=== PATIENT | female | born 1970 | race Asian ===

== ENCOUNTER → 2017-07-12 | Outpatient (REF) | payer BC ==
[2017-07-12 19:57] LABS: BACTERIA, URINE LARGE AMOUNT; MICROSCOPIC EXAM PERFORMED; SQUAMOUS EPITHELIAL CELL URINE SMALL AMOUNT /hpf (SMALL AMT)
[2017-07-12 21:47] LABS: HYALINE CAST, URINE NONE SEEN /lpf (0-1)
== END ==
LOC: M LAB REF 16:36
DX: R35.0 Frequency of micturition (principal)
CPT/HCPCS: 81015

== ENCOUNTER → 2018-03-02 | Outpatient (CLI) | payer BC | LOC: M WUC 12:12 | DX: M54.32 Sciatica, left side (principal); M51.36 Other intervertebral disc degeneration, lumbar region | CPT/HCPCS: 72110 ==

== ENCOUNTER → 2018-12-11 | Outpatient (REF) | payer BC ==
[2018-12-11 17:59] LABS: C REACTIVE PROTEIN QUANTITATIV 0.49 MG/DL (0.00-0.30); RHEUMATOID FACTOR QUANT 49.5 IU/ML (<15.0)
[2018-12-11 18:11] LABS: AMORPHOUS SEDIMENT MODERATE (NEGATIVE); APPEARANCE, URINE CLOUDY (CLEAR); BACTERIA, URINE AUTO 2+ (NEGATIVE); BILIRUBIN, URINE AUTO NEGATIVE (NEGATIVE); BLOOD, URINE BLOOD NEGATIVE (NEGATIVE); COLOR, URINE YELLOW (YELLOW); GLUCOSE, URINE (UA) AUTO NEGATIVE (NEGATIVE); KETONE, URINE AUTO NEGATIVE (NEGATIVE); LEUKOCYTE ESTERASE, URINE AUTO NEGATIVE (NEGATIVE); NITRITE, URINE AUTO POSITIVE (NEGATIVE); PROTEIN, URINE AUTO NEGATIVE (NEGATIVE); RBC, URINE AUTO 6 /HPF (0-3); SPECIFIC GRAVITY URINE AUTO 1.016 (1.002-1.035); SQUAMOUS EPITHELIAL CELL UR AU 1 /HPF (0-6); WBC, URINE AUTO 2 /HPF (0-3)
[2018-12-14 14:08] LABS: ANTI DOUBLE STRAND-DNA AB 1 IU/mL (0-9); ANTINUCLEAR ANTIBODIES DIRECT Positive (Negative); Lyme Disease IgG Ab 18 kDa Ban Present (.); Lyme Disease IgG Ab 23 kDa Ban Absent (.); Lyme Disease IgG Ab 28 kDa Ban Absent (.); Lyme Disease IgG Ab 30 kDa Ban Absent (.); Lyme Disease IgG Ab 39 kDa Ban Absent (.); Lyme Disease IgG Ab 41 kDa Ban Absent (.); Lyme Disease IgG Ab 45 kDa Ban Absent (.); Lyme Disease IgG Ab 58 kDa Ban Absent (.); Lyme Disease IgG Ab 66 kDa Ban Absent (.); Lyme Disease IgG Ab 93 kDa Ban Absent (.); Lyme Disease IgG West Blot Int Negative (.); Lyme Disease IgG/IgM Antibodie <0.91 ISR (0.00-0.90); Lyme Disease IgM Ab 23 kDa Ban Absent (.); Lyme Disease IgM Ab 39 kDa Ban Absent (.); Lyme Disease IgM Ab 41 kDa Ban Absent (.); Lyme Disease IgM Ab Quantitati 0.87 index (0.00-0.79); Lyme Disease IgM West Blot Int Negative (.); RNP ANTIBODIES <0.2 AI (0.0-0.9); SJOGREN'S ANTI SS-A >8.0 AI (0.0-0.9); SJOGREN'S ANTI SS-B 1.9 AI (0.0-0.9); SMITH ANTIBODIES <0.2 AI (0.0-0.9)
== END ==
LOC: M LAB REF 16:56
PROVIDERS: ATTEND Nurse Practitioner Family
DX: M25.50 Pain in unspecified joint (principal); R31.9 Hematuria, unspecified

== ENCOUNTER → 2018-12-14 | Outpatient (CLI) | payer BC ==
--- NOTE | 2018-12-14 20:53 | REP ---
Clinical: Leiomyoma . Technique: Transabdominal pelvic ultrasound followed by transvaginal examination for better evaluation of the endometrium and adnexa with color Doppler evaluation of the ovaries. Findings: Bladder is unremarkable and measures 7.6 x 9.3 x 10.0 cm . Heterogeneous retroverted uterus measures 8.2 x 4.8 x 5.0 cm . The endometrial complex measures 2.9 mm thickness. Two small intramural fibroids are suspected measuring 9 mm and 5 mm maximal diameter. Right ovary is not visualized. Left ovary appears normal and measures 2.2 x 1.5 x 1.2 cm. No ascites. Impression: 1. Heterogeneous retroverted uterus with two small subcentimeter intramural fibroids up to 9 mm. 2. Right ovary not visualized. Normal left ovary identified. Electronically Signed by Matt Wilder MD 12/14/2018 08:44 P
== END ==
LOC: M RAD 17:27
PROVIDERS: ATTEND Obstetrics & Gynecology
DX: D25.1 Intramural leiomyoma of uterus (principal)

== ENCOUNTER → 2020-08-01 | Outpatient (CLI) | payer BC ==
[2020-08-01 17:28] LABS: FREE T3 2.6 PG/ML (2.2-4.0); NT-PRO BNP 20 PG/ML (<125); TOTAL 25(OH) VITAMIN D 17.4 NG/ML (30.0-100.0); TROPONIN I < 0.02 NG/ML (< 0.10)
== END ==
LOC: M WUC 13:58
PROVIDERS: ATTEND Registered Nurse
DX: Z13.21 Encounter for screening for nutritional disorder (principal); Z13.29 Encounter for screening for other suspected endocrine disorder; R07.9 Chest pain, unspecified

== ENCOUNTER → 2020-12-26 | Outpatient (CLI) | payer BC ==
[2020-12-26 15:12] LABS: MEAN CORPUSCULAR HEMOGLOBIN 31.5 pg (27.0-33.0); MEAN CORPUSCULAR HGB CONC 34.3 g/dl (32.0-36.5); MEAN CORPUSCULAR VOLUME 91.9 fl (80.0-96.0); PLATELET COUNT, AUTOMATED 288 10^3/uL (150-450); RED BLOOD COUNT 3.81 10^6/uL (4.00-5.40); WHITE BLOOD COUNT 7.8 10^3/uL (4.0-10.0)
--- NOTE | 2020-12-26 15:23 | REP ---
INDICATION: PAIN IN THORACIC SPINE/ LABS 1ST, XRAY 2ND. COMPARISON: None. TECHNIQUE: Three views FINDINGS: 27 degree scoliosis lower thoracic spine convexity to the right. No fractures. Normal bony texture. Slight narrowing several midthoracic disc spaces. IMPRESSION: Scoliosis. Spondylosis. No fractures. Normal alignment. <Electronically signed by Lenny Mendenhall > 12/26/20 [id number]
[2020-12-26 15:39] LABS: ALBUMIN 3.8 GM/DL (3.2-5.2); ALT/SGPT 23 U/L (12-78); BILIRUBIN,TOTAL 0.5 MG/DL (0.2-1.0); BLOOD UREA NITROGEN 9 MG/DL (7-18); CARBON DIOXIDE LEVEL 31 MEQ/L (21-32); CHLORIDE LEVEL 105 MEQ/L (98-107); GLOMERULAR FILTRATION RATE > 60.0 (>58); GLUCOSE, FASTING 97 MG/DL (70-100); POTASSIUM SERUM 3.7 MEQ/L (3.5-5.1); SODIUM LEVEL 139 MEQ/L (136-145); TOTAL PROTEIN 7.5 GM/DL (6.4-8.2)
== END ==
LOC: M LAB 14:45
PROVIDERS: ATTEND Registered Nurse
DX: M06.9 Rheumatoid arthritis, unspecified (principal)

== ENCOUNTER → 2021-01-02 | Outpatient (CLI) | payer BC ==
--- NOTE | 2021-01-02 18:02 | REPVR ---
PROCEDURE INFORMATION: Exam: CT Maxillofacial Without Contrast, Sinus Exam date and time: 01/02/2021 5:17 PM Age: 50 years old Clinical indication: Sinusitis; Type not specified; Additional info: [employer] TECHNIQUE: Imaging protocol: CT Maxillofacial without contrast. Focus on the sinuses. Radiation optimization: All CT scans at this facility use at least one of these dose optimization techniques: automated exposure control; mA and/or kV adjustment per patient size (includes targeted exams where dose is matched to clinical indication); or iterative reconstruction. COMPARISON: No relevant prior studies available. FINDINGS: Frontal sinuses: Mucosal thickening and fluid level within the right frontal sinus which may be seen with acute sinusitis. Clear left frontal sinus. Ethmoid air cells: Near complete opacification of right ethmoid sinuses. Clear left ethmoid sinuses. Sphenoid sinuses: Clear bilateral sphenoid sinuses. Maxillary sinuses: Complete opacification of the right maxillary sinus. Mild mucosal thickening of the left maxillary sinus. The left maxillary ostiomeatal complex appears occluded. Nasal cavity/Septum: Unremarkable. Orbital cavity: Orbits are normal. Globes are unremarkable. Bones/joints: Unremarkable. Soft tissues: Unremarkable. Mastoid air cells: Clear mastoids. IMPRESSION: 1. Mucosal thickening and fluid level within the right frontal sinus which may be seen with acute sinusitis. 2. Near complete opacification of right ethmoid sinuses. 3. Complete opacification of the right maxillary sinus with mild mucosal thickening of the left maxillary sinus. 4. Occlusion of the left maxillary ostiomeatal complex. Electronically signed by: Guille Williamson On 01/02/2021 18:01:54 PM
== END ==
LOC: M RAD 17:09
PROVIDERS: ATTEND Otolaryngology
DX: J32.4 Chronic pansinusitis (principal)

== ENCOUNTER → 2021-02-06 | Outpatient (CLI) | payer BC ==
--- NOTE | 2021-02-06 15:38 | REPMRS ---
Patient History The patient states she had a clinical breast exam in November 2020. No known family history of cancer. Took hormonal contraceptives for 15 years. Pt denied . Moderna vaccine 05/13/21 left arm. 06/10/20 left arm. Patient states no breast complaints today. Patient has signed MRS History Sheet. Digital Woman Screen Mammo: February 06, 2021 - Exam #: [id number] Bilateral CC and MLO view(s) were taken. Technologist: RT Marga Prior study comparison: October 12, 2019, bilateral digital mammo screening bilat, performed at [facility]. July 20, 2018, bilateral digital mammo screening bilat, performed at [facility]. FINDINGS: The breast tissue is heterogeneously dense. This may lower the sensitivity of mammography. Screening. Digital screening (2D) mammography was performed bilaterally in the CC and MLO projections. Additionally, breast tomosynthesis (3D mammography) was performed bilaterally in the CC and MLO projections. Todays exam was compared to the prior exam/exams. By history, the patient has no complaints of a palpable breast abnormality or other significant breast complaints. The Volpara volumetric breast density category is C, the breasts are heterogenously dense which may obscure small masses. The breasts are unchanged in size and shape. There are no jorge l-soft tissue densities or spiculated masses. There is no internal architectural distortion. There are no suspicious jorge l-calcific clusters. Skin thickening or nipple retraction is not present. IMPRESSION: BI-RADS Category 2- Benign Findings. There is no evidence of malignant alteration of the breasts. Followup examination recommended in one year. This mammogram was read with the assistance of [facility] [employer],an FDA approved computer aided detection system for mammography. The lifetime Tyrer-Cuzick score is 8.3% Negative x-ray reports should not delay surgical consultation if a dominant or clinically suspicious mass is present. Not all breast cancers can be identified by mammography. Therefore, we recommend that you continue to perform regular breast self-examination and physical examination and then promptly contact your physician of any concerns or changes. Due to the density of the breasts, MRI/whole breast screening ultrasound is warranted. Adenosis and dense breasts may obscure an underlying neoplasm. No significant changes when compared with prior studies. Assessment: BI-RADS/ACR category 2 mammogram. Benign Findings. Recommendation Routine screening mammogram of both breasts in 1 year. Electronically Signed By: Abel Rocha MD 02/06/21 [id number]
== END ==
LOC: M WHC 14:32
PROVIDERS: ATTEND Registered Nurse
DX: Z12.31 Encounter for screening mammogram for malignant neoplasm of breast (principal)

== ENCOUNTER 2021-07-27 15:23 | Emergency (ER) | payer BC ==
[2021-07-27 16:24] LABS: BASO # 0.1 10^3/uL (0.0-0.2); BASO % 0.7 % (0.0-1.0); EOS # 0.2 10^3/uL (0.0-0.5); EOS % 2.9 % (0.0-3.0); HEMATOCRIT 36.9 % (36.0-47.0); HEMOGLOBIN 12.7 g/dl (12.0-15.5); LYMPH # 2.5 10^3/uL (1.5-5.0); LYMPH % 30.2 % (24.0-44.0); MEAN CORPUSCULAR HEMOGLOBIN 31.2 pg (27.0-33.0); MEAN CORPUSCULAR HGB CONC 34.4 g/dl (32.0-36.5); MEAN CORPUSCULAR VOLUME 90.7 fl (80.0-96.0); MONO # 0.8 10^3/uL (0.0-0.8); MONO % 9.6 % (2.0-8.0); NEUTROPHILS # 4.6 10^3/uL (1.5-8.5); NEUTROPHILS % 56.4 % (36.0-66.0); PLATELET COUNT, AUTOMATED 341 10^3/uL (150-450); RED BLOOD COUNT 4.07 10^6/uL (4.00-5.40); WHITE BLOOD COUNT 8.2 10^3/uL (4.0-10.0)
[2021-07-27 16:37] LABS: INR 0.9; PROTHROMBIN TIME 12.5 SECONDS (12.7-14.5)
[2021-07-27 16:49] LABS: CK-MB VALUE MASS < 1.0 NG/ML (<3.6); CPK CREATINE PHOSPHOKINASE 50 U/L (26-192)
[2021-07-27 16:56] LABS: ALBUMIN 3.9 GM/DL (3.2-5.2); ALT/SGPT 30 U/L (12-78); BILIRUBIN,DIRECT < 0.1 MG/DL (0.0-0.2); BILIRUBIN,TOTAL 0.5 MG/DL (0.2-1.0); BLOOD UREA NITROGEN 12 MG/DL (7-18); CALCIUM LEVEL 9.1 MG/DL (8.5-10.1); CARBON DIOXIDE LEVEL 29 MEQ/L (21-32); CHLORIDE LEVEL 105 MEQ/L (98-107); CREATININE FOR GFR 0.61 MG/DL (0.55-1.30); GLOMERULAR FILTRATION RATE > 60.0 (>58); GLUCOSE, FASTING 88 MG/DL (70-100); LIPASE 105 U/L (73-393); POTASSIUM SERUM 3.5 MEQ/L (3.5-5.1); SODIUM LEVEL 139 MEQ/L (136-145); TOTAL PROTEIN 8.1 GM/DL (6.4-8.2)
[2021-07-27] MEDS ORDERED: ISOVUE-370 76% 100ML VIAL As Ordered ONE (16:58)
[2021-07-27 19:23] VITALS: BP 133/80
== END 2021-07-27 22:20 | disposition home or self-care (01) ==
LOC: M ED 15:23
DX: R07.89 Other chest pain (principal); R20.2 Paresthesia of skin; I10 Essential (primary) hypertension; E78.9 Disorder of lipoprotein metabolism, unspecified; M06.9 Rheumatoid arthritis, unspecified
CPT/HCPCS: 36415; 70450; 70551; 71045; 71275; 80047; 80048; 80076; 82550; 82553; 83690; 85025; 85610; 93005; 93041; 94760; 99285; Q9967

== ENCOUNTER → 2021-11-13 | Outpatient (CLI) | payer BC | LOC: M RAD 14:42 | PROVIDERS: ATTEND Otolaryngology | DX: J32.4 Chronic pansinusitis (principal) ==

== ENCOUNTER → 2021-11-13 | Outpatient (CLI) | payer BC ==
[2021-11-13 16:36] LABS: CHOLESTEROL RISK RATIO 5.236 (<5)
== END ==
LOC: M LAB 15:35
PROVIDERS: ATTEND Registered Nurse
DX: I10 Essential (primary) hypertension (principal)

== ENCOUNTER → 2022-08-13 | Outpatient (CLI) | payer BC | LOC: M WUC 13:58 | PROVIDERS: ATTEND Registered Nurse | DX: R76.11 Nonspecific reaction to tuberculin skin test without active tuberculosis (principal); M41.84 Other forms of scoliosis, thoracic region; M41.86 Other forms of scoliosis, lumbar region ==

== ENCOUNTER → 2022-09-03 | Outpatient (CLI) | payer BC ==
[2022-09-03 17:36] LABS: C REACTIVE PROTEIN QUANTITATIV < 0.40 MG/DL (<1.0)
[2022-09-03 17:37] LABS: ALT/SGPT 19 U/L (7.0-40); AST/SGOT 15 U/L (<34); CREATININE FOR GFR 0.52 MG/DL (0.55-1.30); GLOMERULAR FILTRATION RATE > 60.0 (>58)
[2022-09-03 17:58] LABS: BASO # 0.1 10^3/uL (0.0-0.2); BASO % 0.8 % (0.0-1.0); EOS # 0.3 10^3/uL (0.0-0.5); EOS % 4.3 % (0.0-3.0); HEMATOCRIT 35.7 % (36.0-47.0); HEMOGLOBIN 12.2 g/dl (12.0-15.5); LYMPH # 2.5 10^3/uL (1.5-5.0); LYMPH % 34.2 % (24.0-44.0); MEAN CORPUSCULAR HEMOGLOBIN 30.8 pg (27.0-33.0); MEAN CORPUSCULAR HGB CONC 34.2 g/dl (32.0-36.5); MEAN CORPUSCULAR VOLUME 90.2 fl (80.0-96.0); MONO % 13.2 % (2.0-8.0); NEUTROPHILS # 3.4 10^3/uL (1.5-8.5); NEUTROPHILS % 47.1 % (36.0-66.0); PLATELET COUNT, AUTOMATED 347 10^3/uL (150-450); RED BLOOD COUNT 3.96 10^6/uL (4.00-5.40); WHITE BLOOD COUNT 7.3 10^3/uL (4.0-10.0)
[2022-09-03 18:23] LABS: ERYTHROCYTE SEDIMENTATION RATE 17 mm/hr (0-20)
== END ==
LOC: M WUC 14:00
PROVIDERS: ATTEND Physician Assistant Medical
DX: Z79.899 Other long term (current) drug therapy (principal)